=== PATIENT | male | born 1970 | race Caucasian/White ===

== ENCOUNTER 2019-07-25 19:04 | Emergency (ER) | payer MEDICAID, OTHER ==
[~2019-07-25] VITALS: Ht 180.3 cm; Wt 89.4 kg
[~2019-07-25 19:04] MED LIST: BEN25 PO; FAMO-96 PO; HC30CR25 TOP; PRED20TA PO; [UNRECOGNIZED DRUG - CODE] TP
[2019-07-25 19:06] VITALS: Ht 180.3 cm; Wt 89.4 kg
[2019-07-25] MEDS ORDERED: FAMOTIDINE 20 MG TAB PO ONE (20:30)
[2019-07-25] MEDS ORDERED: predniSONE 20 MG TAB PO ONE (20:30)
[2019-07-25] MEDS ORDERED: DIPHENHYDRAMINE 25 MG CAP PO ONE (20:30)
[2019-07-25 21:31] VITALS: BP 118/68; PULSE 78; RESP 16
== END 2019-07-25 21:31 | disposition home or self-care (01) ==
LOC: FTE 19:04
DX: R21 Rash and other nonspecific skin eruption (principal)
CPT/HCPCS: J7512; Z7502; Z7610; 99283